=== PATIENT | male | born 1970 | race Two or more races ===

== ENCOUNTER 2021-01-20 18:11 | Emergency (ER) | payer BC ==
[~2021-01-20] VITALS: Ht 180.3 cm; Wt 78.0 kg
[2021-01-20] MEDS ORDERED: LIDOCAINE VISCUS 2% 15 ML UDC MM ONE (18:30)
[2021-01-20] MEDS ORDERED: MAG HYDROX/AL HYDROX/SIMETH 30 ML LIQUID UDC PO ONE (18:30)
[2021-01-20] MEDS ORDERED: FAMOTIDINE. 20 MG/2 ML VIAL IV ONE ×2 (18:30→18:50)
[2021-01-20] MEDS ORDERED: IV NORMAL SALINE 1000 ML BAG IV ONE (18:30)
[2021-01-20] MEDS ORDERED: ONDANSETRON 4 MG/2 ML VIAL IV ONE (18:30)
[2021-01-20] MEDS ORDERED: IOHEXOL 300MG/ML 100 ML INFUS..BTL ONE (18:33)
[2021-01-20] MEDS ORDERED: SWABABLE VALVE TRANSFER SET EA MC ONE (18:33)
[2021-01-20] MEDS ORDERED: IV NORMAL SALINE 250 ML IV ONE (18:33)
[2021-01-20 18:41] LABS: HEMATOCRIT 43.8 % (36.7-47.1); MEAN CORPUSCULAR HEMOGLOBIN 30.6 uug (23.8-33.4); MEAN CORPUSCULAR VOLUME 91.3 fL (73.0-96.2); PLATELET COUNT (AUTO) 233 K/uL (152-348)
[2021-01-20 18:42] LABS: *BILIRUBIN,URIN NEGATIVE (NEGATIVE); *BLOOD, URINE NEGATIVE (NEGATIVE); *CLARITY,URINE CLEAR (CLEAR); *COLOR,URINE LIGHT YELLOW (YELLOW); *KETONES,URINE TRACE (NEGATIVE); *UROBILINOGEN,URINE 0.2 E.U./dl (NORMAL); LEUKOCYTE ESTERASE ,URINE NEGATIVE (NEGATIVE); NITRITE, URINE NEGATIVE (NEGATIVE); UGLUCOSE NEGATIVE (NEGATIVE)
[2021-01-20] MEDS ORDERED: ONDANSETRON 4 MG/2 ML VIAL ONE (18:42)
[2021-01-20] MEDS ORDERED: LIDOCAINE VISCUS 2% 15 ML UDC ONE (18:42)
[2021-01-20] MEDS ORDERED: MAG HYDROX/AL HYDROX/SIMETH 30 ML LIQUID UDC ONE (18:42)
[2021-01-20 18:43] LABS: POTASSIUM 4.7 mmol/L (3.5-5.1)
[2021-01-20 18:49] LABS: BILIRUBIN,DIRECT 0.1 mg/dL (0.0-0.2); BILIRUBIN,TOTAL 0.3 mg/dL (0.2-1.0); TOTAL PROTEIN, SERUM 7.5 g/dL (6.4-8.2)
[2021-01-20] MEDS ORDERED: ASPI81TA31 PO (19:02)
--- NOTE | 2021-01-20 19:15 | NUR ---
PT RETURNED FROM CT.
[2021-01-20] MEDS ORDERED: FAMO-132 PO (20:43)
[2021-01-20] MEDS ORDERED: HYDROCODONE/APAP 5-325MG TABLET PO ONE (20:45)
[2021-01-20] MEDS ORDERED: HYDROCODONE/APAP 5-325MG TABLET ONE (20:56)
--- NOTE | 2021-01-20 21:00 | NUR ---
Patient discharged to home in stable condition. Steady gait. Denies any pain/discomfort upon discharge. Written and verbal after care instructions given. Patient verbalizes understanding of instructions. Stressed follow up or return to ER for worsening s/s. Picked up by .
[2021-01-20 21:06] VITALS: BP 115/64
== END 2021-01-20 21:05 | disposition home or self-care (01) ==
LOC: ER 18:13
DX: R10.13 Epigastric pain (principal); I45.10 Unspecified right bundle-branch block; Z86.73 Personal history of transient ischemic attack (TIA), and cerebral infarction without residual deficits; I65.22 Occlusion and stenosis of left carotid artery; Z79.82 Long term (current) use of aspirin
CPT/HCPCS: 36415; 74177; 80048; 80076; 81003; 83690; 85025; 93005; 96361; 96374; 96375; 99285; J2405; J3490; Q9967; A4663; J7030; J7050

== ENCOUNTER 2021-01-25 22:40 | Emergency (ER) | payer BC ==
[~2021-01-25] VITALS: Ht 175.3 cm; Wt 68.9 kg
[~2021-01-25 22:40] MED LIST: ASPI81TA31 PO; FAMO-132 PO
--- NOTE | 2021-01-25 22:48 | NUR ---
PT AMBULATED TO ER WITH C/O RT EYE PAIN FROM WORK.
--- NOTE | 2021-01-25 22:52 | NUR ---
DR. BAIN AT BEDSIDE, MSE IN PROGRESS.
[2021-01-25] MEDS ORDERED: FLUORESCEIN SODIUM 1 MG STRIP ONE (22:58)
[2021-01-25] MEDS ORDERED: TETRACAINE HCL 0.5% OPHT DROP 2 ML BOTTLE ONE (22:58)
[2021-01-25] MEDS ORDERED: TETRACAINE HCL 0.5% OPHT DROP 2 ML BOTTLE OP ONE (23:00)
[2021-01-25] MEDS ORDERED: FLUORESCEIN SODIUM 1 MG STRIP OP ONE (23:00)
[2021-01-25] MEDS ORDERED: OXYC-128 PO (23:04)
[2021-01-25] MEDS ORDERED: CIPR5DRO RIGHTEYE (23:04)
[2021-01-25] MEDS ORDERED: OXYCODONE/APAP 5-325 MG TABLET PO ONE (23:15)
[2021-01-25] MEDS ORDERED: OXYCODONE/APAP 5-325 MG TABLET ONE (23:16)
--- NOTE | 2021-01-25 23:18 | NUR ---
Patient discharged to home in stable condition. Denies any pain/discomfort upon discharge. Written and verbal after care instructions given. Patient verbalizes understanding of instructions. Stressed follow up or return to ER for worsening s/s. Steady gait.
[2021-01-25 23:23] VITALS: BP 112/78
== END 2021-01-25 23:24 | disposition home or self-care (01) ==
LOC: ER 22:42
DX: H16.131 Photokeratitis, right eye (principal); W89.8XXA Exposure to other man-made visible and ultraviolet light, initial encounter; Y93.89 Activity, other specified; Y92.69 Other specified industrial and construction area as the place of occurrence of the external cause; Z86.73 Personal history of transient ischemic attack (TIA), and cerebral infarction without residual deficits; Z79.82 Long term (current) use of aspirin; I65.22 Occlusion and stenosis of left carotid artery
CPT/HCPCS: A4663